=== PATIENT | female | born 1980 | race American Indian/Alaskan Native ===

== ENCOUNTER 2017-08-26 05:50 | Day surgery (SDC) | payer MEDICAID ==
[2017-08-26] MEDS ORDERED: ANCEF/STERILE WATER 2 GM/20 ML 2 GM/20 ML SYRINGE IV SCH (06:00)
[2017-08-26] MEDS ORDERED: XYLOCAINE MPF 2% ONE (07:10)
[2017-08-26] MEDS ORDERED: DIPRIVAN 10 MG/ML IV ONE (07:11)
[2017-08-26] MEDS ORDERED: LACTATED RINGERS 1,000 ML IV SCH ×2 (07:21→12:00)
[2017-08-26] MEDS ORDERED: VERSED IV NR (07:21)
[2017-08-26] MEDS ORDERED: ZOFRAN IV PRN (07:23)
[2017-08-26] MEDS ORDERED: DILAUDID IV PRN (07:23)
--- NOTE | 2017-08-26 07:24 | Anesthesia Day of Surgery ---
Anesthesia Day of Surgery - Day of Surgery Patient Examined: Yes Patient H&P Reviewed: Yes Patient is NPO: Yes
--- NOTE | 2017-08-26 07:27 | Anesthesia Consultation ---
Anesthesia Consult and Med Hx Date of service: 08/26/17 - Airway Anesthetic Teeth Evaluation: Good, Crowns (left upper molar) ROM Head & Neck: Adequate Mental/Hyoid Distance: Adequate Mallampati Class: Class I Intubation Access Assessment: Probably Good - Pulmonary Exam CTA: Yes - Cardiac Exam Cardiac Exam: RRR - Pre-Operative Health Status ASA Pre-Surgery Classification: ASA1 Proposed Anesthetic Plan: General - Pulmonary Hx Smoking: No Hx Asthma: No - Cardiovascular System Hx Hypertension: No - Central Nervous System Hx Psychiatric Problems: No - Endocrine Hx Renal Disease: No Hx Liver Disease: No - Other Systems Hx Alcohol Use: No Hx Substance Use: No Hx Cancer: No
[2017-08-26] MEDS ORDERED: MARCAINE-EPI 0.5%-1:200,000 INFILTRATI ONE ×3 (07:29→08:52)
[2017-08-26] MEDS ORDERED: SUBLIMAZE ONE (08:12)
[2017-08-26] MEDS ORDERED: QUELICIN ONE (08:44)
[2017-08-26] MEDS ORDERED: ZOFRAN ONE (08:45)
[2017-08-26] MEDS ORDERED: TORADOL ONE (08:45)
[2017-08-26] MEDS ORDERED: NACL 0.9% IR ONE (08:52)
--- NOTE | 2017-08-26 09:15 | Discharge Summary ---
Short Stay Discharge Plan Activity: other (observe x 2 hrs then october d/c if stable. instruct on drain care. empty & record drainage q 8 hrs. keep dressings dry x 5 days) Weight Bearing Status: Partial Weight Bearing Diet: other (clear liq. advance to reg as jeremiah) Wound: keep clean and dry (x 5 days) Additional Instructions: aleve I po q 6-8 hrs prn for breakthrough pain Follow up with: STEVENSON JASON MD [Staff Physician] - 09/06/17
--- NOTE | 2017-08-26 09:45 | Operative Report ---
PREOPERATIVE DIAGNOSIS: Large subcutaneous mass of upper right back. POSTOPERATIVE DIAGNOSIS: Large subcutaneous mass of upper right back. FINDINGS: Large lipomatous type mass in the subcutaneous area of the upper back grossly measuring approximately 12 x 18 cm. Her mass was removed in its entirety. PROCEDURE: Excision of aforementioned mass. SURGEON: Braydon Leal MD ANESTHESIA: General. ESTIMATED BLOOD LOSS: Minimal. DRAINS: A 19-Lobo drain left. COMPLICATIONS: No complications. DESCRIPTION OF PROCEDURE: The patient was taken to the operating room and placed in prone position, prepped and draped in usual sterile fashion. The palpable mass had been outlined with a marking pencil. An incision was made over the dome of the mass. Electrocautery was used to dissect through the subcutaneous to the mass proper. The mass again was lipomatous in nature. Electrocautery as well as sharp and blunt dissection were used to remove the mass in its entirety. The specimen was sent to pathology. The area was irrigated copiously and dried. Checked for hemostasis and noted to be dry. A 19-Lobo was left draining the subcutaneous space. The drain was brought out through a separate stab incision and secured to the skin with a 2-0 silk suture. Subcutaneous was closed with interrupted 3-0 Vicryl suture. Skin was closed with interrupted 4-0 Prolene. A 0.5% Marcaine with epinephrine was infiltrated over the area for postoperative pain relief. Fluffs and pressure dressings applied. The patient tolerated the procedure well and left OR in stable condition. JOB# [id number] JASMEET/CARA
[2017-08-26] MEDS ORDERED: NORCO 5/325 PO PRN (10:30)
[2017-08-26 12:26] VITALS: BP 118/78
== END 2017-08-26 12:05 | disposition home or self-care (01) ==
LOC: OR 05:50
PROVIDERS: ATTEND Surgery
DX: D17.1 Benign lipomatous neoplasm of skin and subcutaneous tissue of trunk (principal); M79.89 Other specified soft tissue disorders; Z98.890 Other specified postprocedural states
CPT/HCPCS: 21931; 81025; 88304; J0330; J0690; J1885; J2250; J2405; J2704; J3010; J7120; 88307